=== PATIENT | female | born 1990 | race Caucasian/White ===

== ENCOUNTER 2018-10-27 06:10 | Inpatient (IN) | payer OTHER ==
[2018-10-27 07:00] LABS: ADD MAN DIFF? NO
[2018-10-27] MEDS ORDERED: MISOPROSTOL 200 MCG TAB PR ×2 (07:00→10:00)
[2018-10-27] MEDS ORDERED: OXYTOCIN 30 UNITS/LR 500 ML IV ×2 (07:00→10:00)
[2018-10-27] MEDS ORDERED: CARBOPROST 250 MCG INJ IM ×2 (07:00→10:00)
[2018-10-27] MEDS ORDERED: METHYLERGONOVINE 0.2 MG INJ IM ×2 (07:00→10:00)
[2018-10-27 07:05] LABS: BASOPHILS % 0.3 % (0.0-2.0); EOSINOPHILS # 0.1 10^3/ul (0.0-0.5); EOSINOPHILS % 0.9 % (0.0-7.0); HEMATOCRIT 37.4 % (37.0-47.0); HEMOGLOBIN 12.8 g/dl (12.0-16.0); LYMPHOCYTES # 2.3 10^3/ul (0.8-2.9); LYMPHOCYTES % 34.5 % (15.0-51.0); MEAN CORPUSCULAR HGB CONC 34.2 g/dl (32.0-37.0); MEAN CORPUSCULAR VOLUME 90.6 fl (82.0-101.0); MONOCYTE # 0.5 10^3/ul (0.3-0.9); MONOCYTES % 7.5 % (0.0-11.0); NEUTROPHIL # 3.8 10^3/ul (1.6-7.5); NEUTROPHILS % 56.4 % (39.0-77.0); PLATELET COUNT 191 10^3/UL (140-415); RED BLOOD COUNT 4.13 10^6/ul (4.20-5.40); RED CELL DISTRIBUTION WIDTH 13.5 % (11.5-14.5)
[2018-10-27 07:05] LABS: WHITE BLOOD COUNT 6.8 10^3/ul (4.8-10.8)
[2018-10-27] MEDS: LACTATED RINGER'S 1,000 ML IV ×3 (07:18→14:45)
[2018-10-27 07:23] LABS: INR 0.94; PARTIAL THROMBOPLASTIN TIME 26.2 Sec (23.0-35.0); PROTIME 12.7 Sec (11.9-14.9)
[2018-10-27] MEDS ORDERED: morphine SULFATE/PF (10 MG/10 ML) INJ (07:45)
[2018-10-27] MEDS ORDERED: PHENYLephrine (100 MCG/ML) 10ML SYG (07:54)
[2018-10-27] MEDS ORDERED: NALOXONE (0.4 MG/ML) INJ IV (08:00)
[2018-10-27] MEDS ORDERED: KETOROLAC 30 MG INJ IV (08:00)
[2018-10-27] MEDS ORDERED: HYDROmorphONE 1 MG/5 ML IV SYRINGE IV ×2 (08:00)
[2018-10-27] MEDS ORDERED: ALBUTEROL 0.083% (NEB) 2.5 MG/3 ML AMP HHN (08:00)
[2018-10-27] MEDS ORDERED: ONDANSETRON 4 MG INJ IV ×2 (08:00)
[2018-10-27] MEDS ORDERED: FENTAnyl 50 MCG/ML VIAL IV ×2 (08:00)
[2018-10-27] MEDS ORDERED: METOCLOPRAMIDE 10 MG INJ IV (08:00)
[2018-10-27] MEDS ORDERED: DIPHENHYDRAMINE 50 MG INJ IV ×2 (08:00)
[2018-10-27] MEDS ORDERED: HYDROmorphONE 0.5 MG/0.5 ML SYG IV (08:00)
[2018-10-27] MEDS: OXYTOCIN 30 UNITS/LR 500 ML IV ×2 (09:48→16:48)
[2018-10-27] MEDS: HYDROmorphONE 0.5 MG/0.5 ML SYG IV (09:49)
[2018-10-27] MEDS ORDERED: METHYLERGONOVINE 0.2 MG TAB PO (10:00)
[2018-10-27] MEDS: KETOROLAC 30 MG INJ IV ×2 (11:06→18:01)
[2018-10-27] MEDS: HYDROmorphONE 1 MG/5 ML IV SYRINGE IV (11:08)
[2018-10-27 11:33] LABS: HEPATITIS B SURFACE ANTIGEN NEGATIVE (NEGATIVE)
[2018-10-27 15:03] LABS: RAPID PLASMA REAGIN NONREACTIVE (NR)
[2018-10-27] MEDS: CEFAZOLIN 2 GM/50 ML (PMX) 50 ML IVPB (19:03)
[2018-10-27] MEDS: SENNA/DOCUSATE NA (8.6MG/50MG) TAB PO (21:36)
[2018-10-28] MEDS: KETOROLAC 30 MG INJ IV ×2 (00:04→06:12)
[2018-10-28] MEDS: LACTATED RINGER'S 1,000 ML IV ×3 (03:44→06:45)
[2018-10-28 08:43] LABS: ADD MAN DIFF? NO
[2018-10-28 08:45] LABS: WHITE BLOOD COUNT 5.7 10^3/ul (4.8-10.8)
[2018-10-28 08:45] LABS: BASOPHILS % 0.2 % (0.0-2.0); EOSINOPHILS % 0.4 % (0.0-7.0); HEMOGLOBIN 10.5 g/dl (12.0-16.0); LYMPHOCYTES # 1.2 10^3/ul (0.8-2.9); LYMPHOCYTES % 20.8 % (15.0-51.0); MEAN CORPUSCULAR HEMOGLOBIN 30.4 pg (29.0-33.0); MEAN CORPUSCULAR HGB CONC 32.8 g/dl (32.0-37.0); MEAN CORPUSCULAR VOLUME 92.8 fl (82.0-101.0); MONOCYTE # 0.4 10^3/ul (0.3-0.9); MONOCYTES % 6.3 % (0.0-11.0); NEUTROPHIL # 4.1 10^3/ul (1.6-7.5); NEUTROPHILS % 71.9 % (39.0-77.0); PLATELET COUNT 145 10^3/UL (140-415); RED BLOOD COUNT 3.45 10^6/ul (4.20-5.40); RED CELL DISTRIBUTION WIDTH 13.5 % (11.5-14.5)
[2018-10-28] MEDS: HYDROCODONE/APAP (5/325) TAB PO ×4 (09:00→21:08)
[2018-10-28] MEDS: SENNA/DOCUSATE NA (8.6MG/50MG) TAB PO ×2 (09:01→20:18)
[2018-10-28 09:09] LABS: ANION GAP 6 (5-13); BLOOD UREA NITROGEN 3 mg/dl (7-20); CALCIUM 8.4 mg/dl (8.4-10.2); CARBON DIOXIDE 22 mmol/L (21-31); CHLORIDE 109 mmol/L (97-110); CREATININE 0.33 mg/dl (0.44-1.00); Estimated GFR > 60 mL/min (>60); GLUCOSE 64 mg/dl (70-220); POTASSIUM 3.7 mmol/L (3.5-5.1); SODIUM 137 mmol/L (135-144)
[2018-10-28] MEDS: IBUPROFEN 800 MG TAB PO (13:02)
[2018-10-28] MEDS: LANOLIN HPA 1 PKT TOP (17:38)
[2018-10-29] MEDS: HYDROCODONE/APAP (5/325) TAB PO ×3 (04:04→17:10)
[2018-10-29] MEDS: IBUPROFEN 800 MG TAB PO ×3 (04:04→21:50)
[2018-10-29] MEDS: MAGNESIUM HYDROXIDE 30ML CUP PO (05:59)
[2018-10-29] MEDS: BISACODYL 10 MG SUPP PR (05:59)
[2018-10-29] MEDS: SENNA/DOCUSATE NA (8.6MG/50MG) TAB PO ×2 (09:55→20:51)
[2018-10-30] MEDS: SENNA/DOCUSATE NA (8.6MG/50MG) TAB PO (08:22)
[2018-10-30] MEDS: HYDROCODONE/APAP (5/325) TAB PO ×2 (08:23→14:44)
[2018-10-30 08:29] LABS: ADD MAN DIFF? NO
[2018-10-30 08:38] LABS: WHITE BLOOD COUNT 5.6 10^3/ul (4.8-10.8)
[2018-10-30 08:38] LABS: BASOPHILS % 0.2 % (0.0-2.0); EOSINOPHILS # 0.1 10^3/ul (0.0-0.5); EOSINOPHILS % 2.2 % (0.0-7.0); HEMATOCRIT 32.2 % (37.0-47.0); HEMOGLOBIN 10.3 g/dl (12.0-16.0); LYMPHOCYTES # 1.1 10^3/ul (0.8-2.9); LYMPHOCYTES % 19.8 % (15.0-51.0); MEAN CORPUSCULAR HEMOGLOBIN 30.7 pg (29.0-33.0); MEAN CORPUSCULAR VOLUME 95.8 fl (82.0-101.0); MEAN PLATELET VOLUME 9.9 fl (7.4-10.4); MONOCYTE # 0.4 10^3/ul (0.3-0.9); MONOCYTES % 6.5 % (0.0-11.0); NEUTROPHIL # 3.9 10^3/ul (1.6-7.5); NEUTROPHILS % 70.8 % (39.0-77.0); PLATELET COUNT 189 10^3/UL (140-415); RED BLOOD COUNT 3.36 10^6/ul (4.20-5.40); RED CELL DISTRIBUTION WIDTH 13.5 % (11.5-14.5)
[2018-10-30] MEDS: DIPHTH/TET/ACEL PERTUSS (ADULT) 0.5 ML VIAL IM* (09:00)
[2018-10-30] MEDS: MEASLES,MUMPS,RUBELLA VACCINE INJ SC* (09:00)
== END 2018-10-30 16:45 | disposition home or self-care (01) | DRG 788 ==
LOC: L-D 06:10 → PP1 14:55
PROVIDERS: Obstetrics & Gynecology
PROC: 10D00Z1 Extraction of Products of Conception, Low, Open Approach (ICD-10-PCS; principal; 2018-10-27 07:30)
DX: O34.219 Maternal care for unspecified type scar from previous cesarean delivery (principal); G89.18 Other acute postprocedural pain; Z3A.39 39 weeks gestation of pregnancy; Z37.0 Single live birth
CPT/HCPCS: 80048; 85025; 85610; 85730; 86592; 86850; 86900; 86901; 87340; 99464